=== PATIENT | female | born 1965 | race Caucasian/White ===

== ENCOUNTER 2017-06-04 08:56 | Emergency (ER) | payer MEDICAID ==
[~2017-06-04] VITALS: Ht 172.7 cm; Wt 58.5 kg
[2017-06-04 09:05] VITALS: BP 129/87
== END 2017-06-04 10:16 | disposition home or self-care (01) ==
LOC: ED 09:44
DX: J20.9 Acute bronchitis, unspecified (principal); Z87.891 Personal history of nicotine dependence
CPT/HCPCS: 71020; 99284